=== PATIENT | female | born 1995 | race Two or more races ===

== ENCOUNTER → 2016-12-15 | Outpatient (CLI) | payer OTHER ==
[~2016-12-15] MED LIST: MOTR200T44 PO; PRENTAB55 PO; TYLE325T5 PO
--- NOTE | 2016-12-15 17:03 | REP ---
Supine abdomen single AP view: There are no comparisons. The bowel gas pattern is normal. There are no calcifications. Skeletal structures and soft tissues otherwise are unremarkable. Impression: Normal bowel gas pattern. Signed by Bret Barba MD 12/15/2016 04:55 P
== END ==
LOC: M LRY 16:33
PROVIDERS: ATTEND Physician Assistant
DX: R10.84 Generalized abdominal pain (principal)